=== PATIENT | female | born 2000 | race Hispanic/Latino ===

== ENCOUNTER 2022-06-26 22:30 | Observation (INO) | payer OTHER, SELFPAY ==
[2022-06-26 22:48] VITALS: BP 118/73; PULSE 82; RESP 16; TEMP 36.8; O2SAT 97; BMI 37.8
[2022-06-27] VITALS (18 sets, daily range): BP systolic 111–145; BP diastolic 60–87; PULSE 70–102; RESP 16–26; TEMP 36.3–37.2; O2SAT 93–100; BMI 37.8
--- NOTE | 2022-06-27 | PATH_ITS ---
[facility] Accession Number: [id number] No. of containers..01 Tissue . 01 Material submitted: . gallbladder - GALLBLADDER AND CONTENTS . 01 Diagnosis: Gallbladder, Cholecystectomy: Chronic cholecystitis, cholesterolosis, and cholelithiasis. Negative for dysplasia and neoplasia. MRV 06/30/2022 1501 Local . 01 Electronically signed: . Fatimah Goldman MD, Pathologist NPI- [id number] . 01 Gross description: . The specimen is received in formalin labeled with the patient's name, , and gallbladder and contents, and consists of an intact gallbladder measuring 11.3 x 3.9 x 3.9 cm. The serosa is smooth and congested while the hepatic surface is rough and unremarkable. The cystic duct is received patent, is inked blue, and no pericystic lymph node is identified. The lumen contains joseph mucoid bile and a single green roughened calculus measuring 3.0 cm in greatest dimension grossly obstructing the cystic duct. The mucosa is joseph and trabecular with yellow trabecular areas consistent with cholesterol deposits. The mucosa is diffusely denuded in areas adjacent to the aforementioned calculus. No polyps or lesions are identified. The valle range from 0.1 to 0.3 cm thick. Household Appliance Mechanic sections to include the cystic duct margin and full-thickness sections are submitted in cassette A1. ([id number]) /MRV 06/28/2022 1555 Local . 01 Pathologist provided ICD-10: K81.1 . 01 CPT . 221826 Specimen Comment: A courtesy copy of this report has been sent to [phone] Performed at: 01 [facility] [address] [place] [address], [place], [place] [id number] MD Saurabh Gonzalez MD Phone: [phone]
[2022-06-27 01:31] LABS: Hematocrit 33.3 % (36-46); Hemoglobin 11.1 g/dL (12.0-16.0); Mean Corpuscular Volume 82.4 fL (80-100); Red Blood Cell Count 4.04 X10^6/uL (4.0-5.2); White Blood Cell Count 8.2 X10^3/uL (4.5-11.0)
[2022-06-27 01:32] LABS: Add Manual Diff / Slide Review NO; Basophils Percent Auto 0.7 % (0-2); Eosinophils Percent Auto 1.6 % (2-4); Lymphocytes Percent Auto 30.4 % (25-40); Mean Corpuscular HGB Conc 33.5 % (30-36); Mean Corpuscular Hemoglobin 27.6 PG (26-34); Monocytes Percent Auto 5.1 % (3-14); Neutrophils Percent Auto 62.2 % (50-75); Platelet Count 307 X10^3/uL (150-400); Red Cell Distribution Width 13.7 % (11.6-14.8)
[2022-06-27 01:41] LABS: Alanine Aminotransferase 22 IU/L (<35); Albumin 4.3 g/dL (3.5-5.0); Albumin Globulin Ratio 1.1 (1.0-2.8); Alkaline Phosphatase 119 U/L (38-126); Aspartate Aminotransferase 19 IU/L (14-36); BUN Creatinine Ratio 20.3 (6-22); Bilirubin Total 0.2 mg/dL (0.2-1.3); Blood Urea Nitrogen 14 mg/dL (7-17); Calcium 9.3 mg/dL (8.4-10.2); Carbon Dioxide 28 mmol/L (22-32); Chloride 103 mmol/L (98-107); Estimated Glomerular Filt Rate > 60 mL/min (>60); Glucose 121 mg/dL (70-100); HEMOLYSIS < 15 (0-50); Lipase 118 U/L (23-300); Sodium 137 mmol/L (137-145); Total Protein 8.3 g/dL (6.3-8.2)
[2022-06-27 01:47] LABS: Neutrophils Absolute Auto 5100 /uL (1500-7000)
[2022-06-27 01:48] LABS: Basophils Absolute Auto 100 /uL (0-100); Eosinophils Absolute Auto 100 /uL (0-450); Lymphocytes Absolute Auto 2500 /uL (1100-4500); Monocytes Absolute Auto 400 /uL (0-900)
--- NOTE | 2022-06-27 02:45 | ED_ITS ---
HPI - General Adult General Chief complaint: Abdominal Pain Stated complaint: Right sided Abd pain, back pain Time Seen by Provider: 06/27/22 02:45 Source: patient Mode of arrival: Ambulatory History of Present Illness HPI narrative: 21-year-old woman with no significant medical history presents with 5 days of abdominal and right upper back pain. She notes that 5 days ago she was moving some heavy furniture around and developed some pain in the distal portion of her right trapezius muscle heading under the scapula on the right side. She can currently noted increasing abdominal pain initially somewhat diffuse now somewhat localizing to the right upper quadrant worse after eating with a sense of bloating. She finds that ibuprofen helps slightly. She isn't sure that 2 pains are related. She has not had fevers or chills but did have some nausea without vomiting earlier today. She was seen at [facility] yesterday diagnosed with back pain and given a muscle relaxer that makes her sleepy but does not particularly address the pain. She notes that she is had regular bowel movements throughout this period and bowel movements do not seem to influence the pain in any way. She has not complain of any vaginal discharge. She is had no black or bloody stools and no overt emesis. Related Data Allergies Allergy/AdvReac Type Severity Reaction Status Date / Time No Known Drug Allergies Allergy Verified 06/26/22 23:06 Review of Systems Review of Systems Narrative: Remainder of complete review of systems is otherwise unremarkable except for that included in the HPI. Patient History Social History Smoking Status: Never smoker Smoking Status: Never smoker Substance Use Type: marijuana Exam Initial Vital Signs Initial Vital Signs: Vital Signs Temperature 98.2 F 06/26/22 22:48 Pulse Rate 82 06/26/22 22:48 Respiratory Rate 16 06/26/22 22:48 Blood Pressure 118/73 06/26/22 22:48 Pulse Oximetry 97 06/26/22 22:48 Oxygen Delivery Method Room Air 06/26/22 22:48 General: Healthy appearing, in mild distress. Sitting upright in uncomfortable with moving. Able to give a complete and coherent history. Well-nourished well-developed HEENT: Moist mucous membranes, normal sclera with reactive pupils, Respiratory: Lungs are clear to auscultation, no wheezing no rales no rhonchi. Full and symmetrical air movement Cardiac: Regular rate and rhythm no murmurs no bruits Abdomen: Soft, mild tenderness in the right upper quadrant without rebound or guarding good bowel tones, no flank pain Back: Mild tenderness just under the scapula on the right reproducible with palpation without any skin changes or erythema.. No significant lower back mid line or paraspinous tenderness. Skin: Warm and dry, no rashes Neurologic: Grossly neurologically intact with no obvious asymmetries or abnormalities Extremities: No trauma, well perfused Psych: Cooperative, appropriate insight and affect Course Orders Ordered: ED Orders 06/26/22 23:06 Complete Blood Count AUTO DIFF Stat Comprehensive Metabolic Panel Stat Lipase Stat 06/27/22 02:59 CT abdomen pelvis w con Stat Ondansetron HCl (Ondansetron 4 Mg Odt) 4 mg PO NOW PRN PRN Reason: Nausea And Vomiting Ondansetron HCl (Ondansetron 4 Mg/2 Ml Inj) 4 mg IV NOW PRN PRN Reason: Nausea And Vomiting Vital Signs Vital signs: Vital Signs - 8 hr 06/26/22 22:48 06/27/22 03:58 Temperature 98.2 F Pulse Rate 82 80 Respiratory Rate 16 18 Blood Pressure 118/73 130/63 Pulse Oximetry 97 100 Oxygen Delivery Method Room Air Room Air Medical Decision Making Lab Data 06/27/22 01:20 06/27/22 01:20 Labs: Lab Results 06/27/22 06/27/22 Range/Units 01:20 01:20 WBC 8.2 (4.5-11.0) X10^3/uL RBC 4.04 (4.0-5.2) X10^6/uL Hgb 11.1 L (12.0-16.0) g/dL Hct 33.3 L (36-46) % MCV 82.4 (80-100) fL MCH 27.6 (26-34) PG MCHC 33.5 (30-36) % RDW 13.7 (11.6-14.8) % Plt Count 307 (150-400) X10^3/uL Neut % (Auto) 62.2 (50-75) % Lymph % (Auto) 30.4 (25-40) % Slope % (Auto) 5.1 (3-14) % Eos % (Auto) 1.6 L (2-4) % Baso % (Auto) 0.7 (0-2) % Neut # (Auto) 5100 (1927-4945) /uL Lymph # (Auto) 2500 (0465-1649) /uL Slope # (Auto) 400 (0-900) /uL Eos # (Auto) 100 (0-450) /uL Baso # (Auto) 100 (0-100) /uL Sodium 137 (137-145) mmol/L Potassium 4.0 (3.4-5.1) mmol/L Chloride 103 (98-107) mmol/L Carbon Dioxide 28 (22-32) mmol/L BUN 14 (7-17) mg/dL Creatinine 0.69 (0.52-1.04) mg/dL Estimated GFR > 60 (>60) mL/min BUN/Creatinine Ratio 20.3 (6-22) Glucose 121 H (70-100) mg/dL Calcium 9.3 (8.4-10.2) mg/dL Total Bilirubin 0.2 (0.2-1.3) mg/dL AST 19 (14-36) IU/L ALT 22 (<35) IU/L Alkaline Phosphatase 119 (38-126) U/L Total Protein 8.3 H (6.3-8.2) g/dL Albumin 4.3 (3.5-5.0) g/dL Globulin 4.0 (1.7-4.1) g/dL Albumin/Globulin Ratio 1.1 (1.0-2.8) Lipase 118 (23-300) U/L Point of Care Testing Test Results Negative Urine Dip Bedside Urine Glucose Negative Bedside Urine Bilirubin - Negative Bedside Urine Ketone - Negative Urine Specific [place] 1.010 Bedside Urine Occult Blood - Negative Bedside Urine pH 6.0 Bedside Urine Protein - Negative Bedside Urine Urobilinogen - Negative Bedside Urine Nitrite - Negative Bedside Urine Leukocytes - Negative Esterase Point of care testing: Point of Care Testing Test Results Negative Urine Dip Bedside Urine Glucose Negative Bedside Urine Bilirubin - Negative Bedside Urine Ketone - Negative Urine Specific [place] 1.010 Bedside Urine Occult Blood - Negative Bedside Urine pH 6.0 Bedside Urine Protein - Negative Bedside Urine Urobilinogen - Negative Bedside Urine Nitrite - Negative Bedside Urine Leukocytes - Negative Esterase MDM Narrative Medical decision making narrative: CC: Right-sided posterior thoracic pain and right upper quadrant pain. This is an acute problem, uncertain prognosis Complicating co-morbidities: Body mass index of 37.8 Data collected from: patient Differential considered: Musculoskeletal pain, cholelithiasis, cholecystitis, common bile duct stone, gastric or duodenal ulcer, intra-abdominal abscess, aortic aneurysm Exam documented above, pertinent findings include: Mild tenderness over the right upper abdominal quadrant and musculoskeletal tenderness just inferior to the right scapula remainder of exam is quite benign Lab Test results independently reviewed as above. Pertinent findings: CBC shows normal white blood cell count, mild anemia at 11.1 and 33.3 without additional blood work for prior comparison Chemistries show normal bili [place], alkaline phosphatase, AST and ALT. Fasting blood sugar slightly elevated at 121. Creatinine and electrolytes are unremarkable Imaging studies independently reviewed: With 5 days of pain progressing and now seeming to localize into the right upper quadrant, minimal help with standard supportive care for musculoskeletal pain and no improvement will move to CT scan to see if additional explanation is found. CT scan suggests gallstone impacted within the neck of the gallbladder with developing acute cholecystitis. Consultations: General surgery, Dr Aldana. Accepts admit. Treatments: IV fluids, parenteral antiemetics and narcotics. She is given an initial dose of ceftriaxone with concerns for possibility of developing infection. Re-evaluations: 4:15am findings and concerns are reviewed with patient. She is amenable to surgical intervention. At this point she is minimally tender and not requesting any pain or nausea medication. Discussion: 21-year-old woman presents with 5 days of pain now localizing to the right lower quadrant radiating through to the scapula the right side. CT scan suggests that she has a impacted gallstone within the neck of the gallbladder with gallbladder distention and developing wall thickening suggesting acute cholecystitis Discharge Plan Departure Patient Disposition: Admitted as Observation Clinical Impression: Acute cholecystitis due to biliary calculus Admit Date/Time: 06/27/22 04:50 Admit Provider: Sara Crawford
--- NOTE | 2022-06-27 02:59 | DI.CT.S_ITS ---
PROCEDURE: CT ABDOMEN PELVIS W CON INDICATIONS: abdominal pain localizing to RUQ with upper back pain TECHNIQUE: After the administration of oral and IV contrast, axial sections were acquired from the lung bases to the pubic symphysis. Coronal and sagittal reformats were performed. For radiation dose reduction, the following was used: automated exposure control, adjustment of mA and/or kV according to patient size. COMPARISON: None. FINDINGS: Image quality: Excellent. Lung bases: Unremarkable. Small hiatal hernia. Heart: No significant findings. ABDOMEN: Liver: Normal size. Mild hepatic steatosis. Gallbladder: There is a large gallstone in the gallbladder neck. Question mild gallbladder wall thickening. No pericholecystic fluid. Biliary ducts: Unremarkable. Pancreas: Unremarkable. Spleen: Unremarkable. Adrenal Glands: Unremarkable. Kidneys and Ureters: Unremarkable. Stomach and Bowel: Stomach, small bowel loops, and colon are unremarkable. Normal appendix. Peritoneum: No abnormal intraperitoneal fluid. No free air. Ventral Wall: Tiny fat containing umbilical hernia. Abdominal Nodes: No retroperitoneal or mesenteric adenopathy by size criteria. Vessels: Aorta and inferior vena cava are normal in size. PELVIS: Pelvic Organs: Unremarkable. Fluid within the uterine cavity is likely related to menses. Ovaries are unremarkable. No pathological free-fluid in the pelvis. Bladder: Unremarkable. Pelvic Nodes: No enlarged lymph nodes. Miscellaneous: No inguinal hernias are seen. Bones: Unremarkable. IMPRESSION: 1. Cholelithiasis. Question mild gallbladder wall thickening. Recommend clinical correlation for early acute cholecystitis. If clinically indicated, ultrasound or HIDA scan would be helpful. 2. Hepatic steatosis. No significant discrepancy with the maintenance technician 3rd shift radiology preliminary report. Dictated by: Erika Hunt M.D. on 06/27/2022 at 8:36 Approved by: Erika Hunt M.D. on 06/27/2022 at 8:39
[2022-06-27] MEDS: SODIUM CHLORIDE 0.9% 1,000 ML 125 ML IV (05:05)
[2022-06-27] MEDS: cefTRIAXone 2,000 MG in SODIUM CHLORIDE 0.9% 100 ML 200 MG IV (05:21)
[2022-06-27 05:44] LABS: COVID19 -Nasal RAPID Negative (Negative)
--- NOTE | 2022-06-27 10:54 | PM.HP.1 ---
History of Present Illness History of Present Illness Date Patient Seen: 06/27/22 Chief complaint: Right sided Abd pain, back pain Narrative: Sabina is a 21-year-old woman who presented with several days of right upper quadrant postprandial pain. She was found to have cholelithiasis on a CT scan. She is never had any prior upper abdominal surgery. [facility] Social History Smoking Status: Never smoker Meds Home Medications and Allergies Allergies Allergy/AdvReac Type Severity Reaction Status Date / Time No Known Drug Allergies Allergy Verified 06/26/22 23:06 Exam Vital Signs (past 8 hours): - 06/27/22 03:58 06/27/22 06:51 06/27/22 08:00 Pulse Rate 80 76 77 Respiratory Rate 18 18 17 Blood Pressure 130/63 123/60 123/60 Pulse Oximetry 100 99 99 Oxygen Delivery Method Room Air Room Air 06/27/22 08:57 Pulse Rate 82 Respiratory Rate 19 Blood Pressure 111/60 Pulse Oximetry 100 Oxygen Delivery Method Oxygen Delivery Method Room Air Narrative Exam Narrative: Tender to palpation in the right upper quadrant with a positive Farias sign Objective Labs 06/27/22 01:20 06/27/22 01:20 Labs: Laboratory Results - last 24 hr 06/27/22 06/27/22 06/27/22 01:20 01:20 05:10 WBC 8.2 RBC 4.04 Hgb 11.1 L Hct 33.3 L MCV 82.4 MCH 27.6 MCHC 33.5 RDW 13.7 Plt Count 307 Neut % (Auto) 62.2 Lymph % (Auto) 30.4 Bartholomew % (Auto) 5.1 Eos % (Auto) 1.6 L Baso % (Auto) 0.7 Neut # (Auto) 5100 Lymph # (Auto) 2500 Bartholomew # (Auto) 400 Eos # (Auto) 100 Baso # (Auto) 100 Sodium 137 Potassium 4.0 Chloride 103 Carbon Dioxide 28 BUN 14 Creatinine 0.69 Estimated GFR > 60 BUN/Creatinine Ratio 20.3 Glucose 121 H Calcium 9.3 Total Bilirubin 0.2 AST 19 ALT 22 Alkaline Phosphatase 119 Total Protein 8.3 H Albumin 4.3 Globulin 4.0 Albumin/Globulin Ratio 1.1 Lipase 118 SARS-CoV-2 (PCR) Negative Assessment & Plan Assessment and plan (1) Symptomatic cholelithiasis: Status: Acute Plan Recommend laparoscopic cholecystectomy for symptomatic cholelithiasis. We reviewed the risks and benefits and she would like to proceed.
[2022-06-27] MEDS: CEFAZOLIN 2 GM/100 ML PREMIX 100 ML IV (11:44)
[2022-06-27] MEDS: LACTATED RINGERS 1,000 ML 100 ML IV ×2 (11:44→15:26)
--- NOTE | 2022-06-27 13:01 | PC.NURSE ---
Pt transported from ED to room 218 at approximately 1100 a.m. and oriented to room. Admission assessment completed. Patient is A&Ox4. mother is supportive at bedside. She states she has been nothing by mouth since last night at about 7 p.m. She has only had ice chips this a.m. Reported of to preop RN. She is escorted to Preop area at 1300 this afternoon.
[2022-06-27] MEDS: ACETAMINOPHEN IV 1,000 MG/100 ML VIAL 400 MG IV (14:00)
--- NOTE | 2022-06-27 14:08 | SUR.OPER ---
Supine on padded OR bed, head on pillow, safety belt at thigh, left arm padded and tucked at side. Right arm secured on padded arm board <90 degrees abduction. Legs uncrossed. Padded footboard in place. Tape over blanket to secure lower legs.
[2022-06-27] MEDS: BUPIVACAINE 0.5% (PF) 30 ML, EPINEPHrine 0.15 MG INJ (14:30)
--- NOTE | 2022-06-27 15:25 | P.OP_ITS ---
Operative Date/Time/Diagnoses Date of procedure: 06/27/22 Time of procedure: 15:25 Pre-op diagnosis: Symptomatic cholelithiasis Post-op diagnosis: other (Acute cholecystitis) Procedure & Clinicians Procedure: Laparoscopic cholecystectomy Same procedure as scheduled: Yes Surgeon: Hernan Ramesh Residential Recycle Driver: Mitchell Reed Anesthesia Type: General Operative Notes Procedure in detail: The patient was given preoperative antibiotic. The patient was brought to the operating room, placed on the table in the supine position. General endotracheal anesthesia was induced. The abdomen was prepped and draped. A time-out was performed. We made a 1 cm infraumbilical incision. We dissected down to the base of the umbilical stalk using cautery. We grasped the umbilical stalk with a Richy clamp to elevate the abdominal wall. We scored the fascia in the midline with cautery 1 cm. We pierced the peritoneum with a Peon clamp. The Amilcar port was placed and the abdomen was insufflated to 15 mmHg. A 5 mm 30 degree laparoscopic was inserted. There was no evidence of any injury from the entry. Next, we placed 5 mm ports in the subxiphoid position and right upper quadrant at the midclavicular line and anterior axillary line. Patient was then positioned in reverse Trendelenburg and the table was tilted to the left. The patient had a very large liver. The gallbladder was very tense and distended but it was able to be grasped without decompression. The gallbladder was grasped at the dome and retracted cephalad. There was a large stone impacted at the infundibulum. Gallbladder was quite inflamed. We then dissected the cystic structures with a combination of hook cautery and blunt dissection. We obtained a critical view. We placed clips on the cystic duct and artery and divided the cystic duct and artery sharply between the clips. The gallbladder was then dissected off the liver and placed in a specimen retrieval bag. We irrigated the right upper quadrant and all the aspirate returned clear. We then removed the 5 mm ports under direct vision we removed the Amilcar port. Due to the size of the gallstone the infraumbilical fascial incision had to be extended to about 3 cm. Once the gallbladder was extracted we injected some local into the fascia and closed the fascial defect with 6 interrupted 0 Ethibond sutures. The skin incisions were closed with 4-0 Monocryl and Steri-Strips were applied. Band-Aids were applied over the Steri- Strips. EBL: 50 mL Specimen: Gallbladder Post-operative Condition: stable Disposition: PACU
[2022-06-27] MEDS: ONDANSETRON 4 MG/2 ML INJ IV (15:51)
[2022-06-27] MEDS: OXYCODONE IR 5 MG TABLET PO (15:59)
[2022-06-27] MEDS: HYDROCODONE/ACET 5/325 TABLET 1 TAB PO ×2 (17:41→22:23)
[2022-06-27] MEDS: HYDROMORPHONE 0.5 MG INJ IV ×2 (18:09→19:51)
--- NOTE | 2022-06-27 18:55 | PC.NURSE ---
Addendum entered by Estela Velasquez R.N. 06/27/22 19:35: notified for alternative antinausea medication. Upon reassessment of PRN hydromorphone 0.5mg Pt sleeping. Original Note: Pt returned from PACU at 1635, VSS, afebrile on RA. She complains of abdominal pain and nausea. LR at 100ml/hr IVF. She voids w/o difficulty. bandaids c/d/i to abdomen. hypoactive BS+ x4.
[2022-06-27] MEDS: IBUPROFEN 600 MG TABLET PO (19:43)
[2022-06-27] MEDS: PROCHLORPERAZINE 10 MG/2 ML VIAL 5 MG IV (22:23)
[2022-06-28 02:29] VITALS: BP 113/61; PULSE 85; RESP 18; TEMP 36.2; O2SAT 94
[2022-06-28] MEDS: LACTATED RINGERS 1,000 ML 100 ML IV (03:23)
[2022-06-28 05:01] VITALS: BP 105/60; PULSE 82; RESP 18; TEMP 36.3; O2SAT 97
--- NOTE | 2022-06-28 08:44 | PC.NURSE ---
Patient states that her side is starting to hurt and her throat from tube in surgery. She has two small incisions that are cdi. Resting comfortably.
[2022-06-28] MEDS: IBUPROFEN 600 MG TABLET PO (09:13)
[2022-06-28] MEDS: HYDROCODONE/ACET 5/325 TABLET 1 TAB PO (09:14)
--- NOTE | 2022-06-28 09:15 | CM.DANOTE ---
DCP: Case received, EMR reviewed and met with patient. Introduced self and role. Was able to obtain information in order to complete DCP assessment. DCP assessment completed with information currently available. Patient is a 21 year old female who admitted yesterday morning to the care of the hospitalist team. PCP: [facility] [place], new provider not yet assigned. Payer: confirmed: [employer]. Patient came to the hospital via private vehicle secondary to having 5 days of abdominal and right upper back pain. Notes indicate that patient had been moving some furniture, and noticed some of the pain under her scapula. Notes also indicate that she was seen at [facility], and diagnosed with back pain, and given a muscle relaxer. Patient was diagnosed with acute cholecystitis due to biliary calculus Patient had her laparoscopic cholecystectomy yesterday. Met with patient in her room. She is alert and oriented, sitting up in bed. Confirmed that she resides in [place] with spouse, Walt, who is active duty [facility]. They recently got . She is employed at [employer] in [place]. She has not yet had a provider assigned to [facility] at the [facility]. Gave her the appointment line for [employer] phone number so she could follow up. P: DCP to continue to follow. Plan is home when deemed medically stable. Zenaida Godinez RN/Coin Wrapping Machine Operator Discharge Planning/Care Management CM Discharge Assessment Start: 06/28/22 09:14 Freq: Status: Active Protocol: Document 06/28/22 09:15 (Rec: 06/28/22 09:15 [id number]) Discharge Planning Assessment Assigned Enamel Applier Zenaida Godinez RN/Coin Wrapping Machine Operator Advance Directives? No History Provided By Patient,Medical Record Prior Living Arrangements House Household Members spouse Type of transporation used prior to Drives own vehicle admit Independent with ADL's Yes Is patient alert and oriented? Yes Caregiver for Another No Barriers to Discharge No Discharge Plan Home Transportation Arrangement Spouse or parent Referrals Initiated None needed Whiteboard Updated in Patient Room with Yes name and ext. # of Enamel Applier Review Status In Process Next Review Type Continued Stay Review
[2022-06-28 09:36] VITALS: BP 129/74; PULSE 84; RESP 18; TEMP 36.8; O2SAT 97
--- NOTE | 2022-06-29 15:49 | P.DS_ITS ---
History of Present Illness History of Present Illness Chief complaint: Right sided Abd pain, back pain Narrative: Sabina is a 21-year-old woman who presented with several days of right upper quadrant postprandial pain. She was found to have cholelithiasis on a CT scan. She is never had any prior upper abdominal surgery. Discharge Providers Provider Date of admission: 06/27/22 04:50 Discharge Date: 06/28/22 Discharge provider: Hernan Ramesh MD Summary Hospital Course Discharge Diagnosis: Acute cholecystitis Hospital Course: The patient was admitted for acute cholecystitis. She underwent a laparoscopic cholecystectomy and was discharged home the following day. Exam Vital Signs (past 8 hours): Oxygen Delivery Method Room Air Oxygen Flow Rate 0 Objective Labs 06/27/22 01:20 06/27/22 01:20 [facility] Surgical History (Updated 06/27/22 @ 13:06 by Trevin Fink RN) History of toe surgery Social History household members: spouse Smoking Status: Never smoker alcohol intake: current Discharge Plan Discharge Plan Patient Disposition: Home Provider Discharge Comment: No lifting greater than 20 lb for 2 weeks. Okay to remove the outer dressing and shower after 24 hours. Leave the Steri-Strips on until they start to peel off in 1-2 weeks. Discharge orders & Medications Prescriptions: New hydrocodone-acetaminophen 5-325 mg tablet 1 tab PO Q8H PRN (Reason: pain) Qty: 10 0RF Visit Report/Discharge Packet Instructions: DI for Open Cholecystectomy, DI for Laparoscopy, [facility]: Wound Care, Hydrocodone/Acetaminophen (By mouth) Stand Alone Forms: Patient Portal/API, Stroke Signs & Symptoms Discharge Data Attending Provider: Sara Crawford Admit Date/Time: 06/27/22 04:50 Discharges patient from system. Discharge Date/Time: 06/28/22 10:28 Quality VTE Deep Vein Thrombosis/Pulmonary Embolism Present on Admission: No
== END 2022-06-28 10:28 | disposition home or self-care (01) ==
LOC: ED 06-27 04:50 → AC 06-27 04:52
PROVIDERS: Surgery; Admitting Provider Surgery; Emergency Provider Emergency Medicine; Referring Provider Emergency Medicine; Visit Provider Surgery
PROC: 0FT44ZZ Resection of Gallbladder, Percutaneous Endoscopic Approach (ICD-10-PCS; CPT 47562; principal; 2022-06-27 14:30)
DX: K80.00 Calculus of gallbladder with acute cholecystitis without obstruction (principal); Z20.822 Contact with and (suspected) exposure to COVID-19
CPT/HCPCS: 47562; 36415; 74177; 80053; 81003; 81025; 83690; 85025; 87635; 96365; 96375; 96376; 99221; 99284; C9803; G0378; J0131; J0171; J0690; J0696; J0780; J1100; J1170; J1885; J2250; J2405; J2704; J3010; Q9967

== ENCOUNTER 2023-04-02 11:21 | Emergency (ER) | payer OTHER, SELFPAY ==
[2022-06-27 06:39] VITALS: BMI 37.8
[2023-04-02 11:29] VITALS: BP 140/89; PULSE 86; RESP 16; TEMP 36.8; O2SAT 98; BMI 32.8
[2023-04-02 12:09] VITALS: PULSE 80
--- NOTE | 2023-04-02 12:16 | ED.EXTPRO ---
HPI - Extremity Problem <JHONY Denson - Last Filed: 04/02/23 13:02> General Chief complaint: Extremity Problem,Nontraumatic Stated complaint: R/ SHOULDER PAIN Time Seen by Provider: 04/02/23 11:39 Source: patient Mode of arrival: Ambulatory History of Present Illness HPI Narrative: 22-year-old female, never smoker, presents to the emergency department with right shoulder pain x2 days. Patient states that she was reaching for door with her right arm and when she opened the door, felt a pop in her right shoulder. No history of previous dislocations or right shoulder injury. Denies any trauma to her head or neck. Symptoms have not improved and starting to feel worse. Home treatment has included Tylenol, hot and cold compresses to the affected site. Related Data Previous Rx's Medication Instructions Recorded methocarbamol 500 mg tablet 500 mg PO TID PRN muscle pain #20 04/02/23 tabs Allergies Allergy/AdvReac Type Severity Reaction Status Date / Time No Known Drug Allergies Allergy Verified 04/02/23 11:34 Review of Systems <JHONY Denson - Last Filed: 04/02/23 13:02> Review of Systems Narrative: Narrative: See HPI. GENERAL: Denies chills, fatigue, fever, sweats. HEENT: Denies sinus pain, ear pain, sore throat, difficulty swallowing, dizziness. RESPIRATORY: Denies dyspnea, cough, wheezing, sputum. CARDIOVASCULAR: Denies chest pain, palpitations, edema. GASTROINTESTINAL: Denies nausea, vomiting, abdominal pain, diarrhea, constipation. : Denies dysuria, frequency, incontinence, hematuria, urinary retention, flank pain. MSK: Denies weakness. Endorses right shoulder pain. SKIN: Denies rash, skin lesions, or pruritis. NEUROLOGIC: Denies weakness, dizziness, headache, numbness, confusion. PSYCHIATRIC: No concerning psychosocial issues. Patient History <JHONY Denson - Last Filed: 04/02/23 13:02> Surgical History History of toe surgery Social History household members: spouse Smoking Status: Never smoker alcohol intake: current Smoking Status: Never smoker alcohol intake frequency: holidays/special occasions only Substance Use Type: marijuana Exam <JHONY Denson - Last Filed: 04/02/23 13:02> Narrative Exam Narrative: Exam Narrative: GENERAL: This is a well-nourished, well-developed patient, in no acute distress. HEAD: Atraumatic. Normocephalic. EYES: Pupils equal round and reactive. No scleral icterus, injection or drainage. ENT: Nose without bleeding, purulent drainage. Airway patent. NECK: Trachea midline. No JVD or lymphadenopathy. Nontender. No C-spine tenderness. CARDIOVASCULAR: Regular rate and rhythm without murmurs, peripheral pulses intact, cap refill <2 sec. RESPIRATORY: Breath sounds equal and clear bilaterally. No wheezes, rales, or rhonchi. No cough. No increased respiratory effort. No accessory muscle use. MSK: Moves all extremities. Normal range of motion, no clubbing or edema. Neurovascularly intact. NEURO: A&O x 3. SKIN: Warm, dry, no rashes or lesions noted. SHOULDER: There is no swelling, bruising or asymmetry. There is no tenderness to palpation over the AC joint, coracoid or glenoid processes. There is soft tissue tenderness to palpation. Sensation grossly intact. Active and passive range of motion is limited due to pain. Pain begins at 90? in all directions. Resistive strength intact. Range of motion of the elbow is normal. The contralateral shoulder exam is unremarkable. Initial Vital Signs Initial Vital Signs: Vital Signs Temperature 98.3 F 04/02/23 11:29 Pulse Rate 86 04/02/23 11:29 Respiratory Rate 16 04/02/23 11:29 Blood Pressure 140/89 04/02/23 11:29 Pulse Oximetry 98 04/02/23 11:29 Oxygen Delivery Method Room Air 04/02/23 11:29 Reviewed <Nolan Lazo DO - Last Filed: 04/02/23 13:20> Initial Vital Signs Initial Vital Signs: Vital Signs Temperature 98.3 F 04/02/23 11:29 Pulse Rate 86 04/02/23 11:29 Respiratory Rate 16 04/02/23 11:29 Blood Pressure 140/89 04/02/23 11:29 Pulse Oximetry 98 04/02/23 11:29 Oxygen Delivery Method Room Air 04/02/23 11:29 Course <JHONY Denson - Last Filed: 04/02/23 13:02> Orders Ordered: ED Orders 04/02/23 12:16 XR shoulder RT min 2V Stat Vital Signs Vital signs: Vital Signs - 8 hr 04/02/23 11:29 04/02/23 12:09 Temperature 98.3 F Pulse Rate 86 Pulse Rate [Right Radial] 80 Respiratory Rate 16 Blood Pressure 140/89 Pulse Oximetry 98 Oxygen Delivery Method Room Air <Nolan Lazo DO - Last Filed: 04/02/23 13:20> Orders Ordered: ED Orders 04/02/23 12:16 XR shoulder RT min 2V Stat Vital Signs Vital signs: Vital Signs - 8 hr 04/02/23 11:29 04/02/23 12:09 Temperature 98.3 F Pulse Rate 86 Pulse Rate [Right Radial] 80 Respiratory Rate 16 Blood Pressure 140/89 Pulse Oximetry 98 Oxygen Delivery Method Room Air MDM - Extremity (Nontraumatic) <JHONY Denson - Last Filed: 04/02/23 13:02> Differential Diagnosis Differential diagnosis: Likely other (Right shoulder pain) Imaging Data Extremity x-ray #1: My Impression: Normal shoulder x-ray. Radiologist's Impression: [place] [address] XRay Report Signed Patient: Sabina Fonseca MR#: [id number] : 2000 Acct:[id number] Age/Sex: 22 / F Date of Service: 04/02/23 Loc: ED Accession Number: [id number] Procedure: XR shoulder RT min 2V Ordering Provider: Nolan Noyola PROCEDURE: XR SHOULDER RT MIN 2V INDICATIONS: Right shoulder pain TECHNIQUE: 3 views of the shoulder were acquired. COMPARISON: None. FINDINGS: Bones: No fractures or dislocations. No suspicious bony lesions. Visualized ribs appear intact. Soft tissues: No suspicious soft tissue calcifications. IMPRESSION: No acute bony abnormality. If it would be helpful for clinical management decision making, please consider a dedicated, scheduled shoulder MRI for further evaluation (assuming that there is no contraindication). Dictated by: Khris Weathers M.D. on 04/02/2023 at 11:39 Approved by: Khris Weathers M.D. on 04/02/2023 at 11:40 [facility] Narrative Medical decision making narrative: 22-year-old female with right shoulder pain. Assessment was encouraging and x-ray was normal. Suspect this is a musculoskeletal injury and recommended Rest (modified activity), along with heat or ice, sling as directed with instructions to engage in gentle range of motion stretching exercises such as wall crawls or arm swings. Tylenol or Ibuprofen for discomfort. Will trial a short course muscle relaxer to see if this helps with her symptoms. Discussed plan of care and worsening symptoms that would necessitate a return visit. Patient and verbalized understanding and was agreeable with course of action. Discharge Plan Departure Patient Disposition: Home Clinical Impression: Right shoulder strain Qualifiers: Encounter type: initial encounter Qualified Code(s): S46.911A - Strain of unspecified muscle, fascia and tendon at shoulder and upper arm level, right arm, initial encounter Instructions: DI for Shoulder Pain Activity Restrictions/Additional Instructions: *You have been diagnosed with a right shoulder strain. My assessment was encouraging and your x-ray was completely normal. I do not suspect any physical damage to your shoulder, but believe this to be a musculoskeletal strain. Treatment for this includes rest, hot or cold compresses to the affected site, ibuprofen and gentle range of motion stretching exercises. For any worsening symptoms that include arm numbness, coldness, etc. please return to the emergency department. *What to do: *Please continue to take your regular medications as directed. [ x] New medication prescriptions sent to your pharmacy: [[facility]] [ ] New medication written as a paper prescription [ ] No new medications given *Please follow up with your primary care provider in 2-3 days, call for an appointment. Let them know you were seen in the Emergency Department and that we ask that you be seen in follow up. We will electronically transmit a record of today's note if your PCP is in our system *If you do not have a primary care provider please contact the [facility] Resource line at [phone]. They will ask some questions about your medical history and help get you set up with a doctor in the community. ? Return to ER if you should have any new, worsening or concerning symptoms, such as worsening pain, severe headache, confusion, chest pain, difficulty breathing, fever greater than 101 F, shaking chills, persistent vomiting to the point that you cannot drink fluids, or other new or worsening symptoms. Prescriptions: New methocarbamol 500 mg tablet 500 mg PO TID PRN (Reason: muscle pain) Qty: 20 0RF Referrals: Miscellaneous,Doctor, MD [Primary Care Provider] - Stand Alone Forms: Patient Portal/API ED Sign-out <Nolan Lazo DO - Last Filed: 04/02/23 13:20> Cosign ED Attending Cosignature Attestation: Dr Lazo Co-Sign Statement: I was available for consultation during this patient's emergency department visit. This chart is signed by myself for administrative purposes only. I did not have direct contact with this patient during this visit. They were seen independently by the APC.
--- NOTE | 2023-04-02 13:00 | PC.NURSE ---
provider at bedside
== END 2023-04-02 13:06 | disposition home or self-care (01) ==
PROVIDERS: Emergency Provider Registered Nurse
DX: S46.911A Strain of unspecified muscle, fascia and tendon at shoulder and upper arm level, right arm, initial encounter (principal); X58.XXXA Exposure to other specified factors, initial encounter
CPT/HCPCS: 73030; 99281; 99283